=== PATIENT | male | born 1945 | race Caucasian/White ===

== ENCOUNTER 2021-12-31 09:51 | Observation (INO) | payer OTHER ==
[~2021-12-31] VITALS: Ht 163.8 cm; Wt 95.3 kg
[2021-12-31 09:53] VITALS: BP 146/107
--- NOTE | 2021-12-31 12:10 | NUR ---
MD LIANG AT BEDSIDE FOR EVALUATION
--- NOTE | 2021-12-31 12:22 | NUR ---
LAB AT BEDSIDE
[2021-12-31 12:37] LABS: BASOPHILS % (AUTO) 0.2 % (0.0-2.0); EOSINOPHILS % (AUTO) 0.4 % (0.0-4.0); HEMATOCRIT 44.1 % (36-52); LYMPHOCYTES # (AUTO) 0.8 K/uL (2.0-11.5); LYMPHOCYTES % (AUTO) 8.5 % (20.5-51.1); MEAN CORPUSCULAR HEMOGLOBIN 31 pg (27-31); MEAN CORPUSCULAR HGB CONC 34 g/dL (33-37); MEAN CORPUSCULAR VOLUME 91.8 fL (80-94); MONOCYTES # (AUTO) 0.7 K/uL (0.8-1.0); MONOCYTES % (AUTO) 7.3 % (1.7-9.3); NEUTROPHILS # (AUTO) 7.7 K/uL (1.8-7.7); NEUTROPHILS % (AUTO) 83.6 % (42.2-75.2); PLATELET COUNT (AUTO) 184 K/uL (140-450); RED CELL DISTRIBUTION WIDTH 15.6 % (11.6-13.7); WHITE BLOOD COUNT (AUTO) 9.3 K/uL (4.8-10.8)
--- NOTE | 2021-12-31 12:38 | NUR ---
pt encouraged to give urine sample and provided w/ urinal
--- NOTE | 2021-12-31 13:00 | NUR ---
76YO MALE PT C/O BURNING DYSURIA , DENIES BLOOD. UNABLE TO RECALL xDAYS FOR SYMPTOMS. NOTES INCREASE IN URINE FREQ. DENIES N/V/D, FEVER , CHILLS, ABDOMINAL OR CHEST PAIN. PT AAOX2 TO NAME AND PLACE W/ EPISODES OF CONFUSION. PER FAMILY, PT AAOX4 AT BASELINE. NO VISIBLE DISTRESS, RESPIRATIONS EVEN AND UNLABORED. HOB POSITIONED PER COMFORT, BED AT LOWEST POSITION, BED RAILS UP X2. HX: HTN, HLD, THYROID DISEASE NKA SURGERIES : Appendectomy, Cholecystectomy
[2021-12-31 13:01] LABS: ALBUMIN 3.6 g/dL (3.4-5.0); ANION GAP 12.2 (8-16); ASPARTATE AMINOTRANSFERASE 18 U/L (15-37); CARBON DIOXIDE 29.1 mmol/L (21-32); CHLORIDE 102 mmol/L (98-107); CREATININE 1.4 mg/dL (0.6-1.3); GLUCOSE 93 mg/dL (74-106); POTASSIUM 4.3 mmol/L (3.5-5.1); SODIUM SERUM 139 mmol/L (136-145); TOTAL BILIRUBIN 0.9 mg/dL (0.0-1.0); UREA NITROGEN, BLOOD 20 mg/dL (7-18)
[2021-12-31 13:26] LABS: APPEARANCE,URINE CLEAR (CLEAR); BILIRUBIN,URINE NEGATIVE (NEGATIVE); BLOOD, URINE 3+ (NEGATIVE); COLOR,URINE YELLOW (YELLOW); LEUKOCYTE ESTERASE ,URINE TRACE (NEGATIVE); NITRITE, URINE NEGATIVE (NEGATIVE); UGLUCOSE NEGATIVE (NEGATIVE)
[2021-12-31] MEDS ORDERED: NACL 0.9% 1,000 ML IV ONE (14:00)
[2021-12-31] MEDS ORDERED: cefTRIAXone 1,000 MG VIAL ONE (14:22)
--- NOTE | 2021-12-31 14:42 | NUR ---
pt swabbed for covid(stefany). handed to label coder
--- NOTE | 2021-12-31 16:45 | NUR ---
DAUGHTER TO CALL BACK W/ MED RECON
--- NOTE | 2021-12-31 16:45 | NUR ---
pt daughter TANNER called , notified of pt status and pending admit
[2021-12-31] MEDS ORDERED: MAG SULF 2000 MG/WATER PREMIX 50 ML IV PRN (17:25)
[2021-12-31] MEDS ORDERED: KCL 20 MEQ/WATER INJ PREMIX 200 ML IV PRN (17:25)
[2021-12-31] MEDS ORDERED: MORPHINE SULFATE 4 MG/ML SYR IVP PRN (17:25)
[2021-12-31] MEDS ORDERED: MAGNESIUM OXIDE 400 MG TAB PO PRN (17:25)
[2021-12-31] MEDS ORDERED: POTASSIUM CHLORIDE 10 MEQ TABER PO PRN (17:25)
[2021-12-31] MEDS ORDERED: HYDROcodone/APAP 5/325 MG 1 TAB TAB PO PRN (17:25)
[2021-12-31] MEDS: NACL 0.9% 1,000 ML IV SCH (17:25)
[2021-12-31] MEDS ORDERED: ONDANSETRON 4 MG/2 ML VIAL IVP PRN (17:25)
--- NOTE | 2021-12-31 18:31 | NUR ---
pt provided w/ dinner tray. pt awake and eating in bed
--- NOTE | 2021-12-31 18:42 | NUR ---
pt reports new onset of headache and nausea.
--- NOTE | 2021-12-31 18:44 | NUR ---
MOVED TO ER BED 11
[2021-12-31] MEDS: ACETAMINOPHEN 325 MG TAB PO PRN (18:52)
--- NOTE | 2021-12-31 19:59 | NUR ---
Patient will be admitted to care of Arben VASQUEZ. Admited to Tele, 123B. Will go to room 123b. Belongings list completed. Bedside report to Arben RN, Arben VASQUEZ verbalized understanding of report, no further questions.
[2021-12-31 20:30] VITALS: BP 138/69
--- NOTE | 2021-12-31 20:45 | NUR ---
RECEIVED PATIENT FROM ER NURSE ANTOINE, PT ARRIVED VIA GURNEY ACCOMPANIED BY DAUGHTER. PATIENT ALERT AND ORIENTED X 4, TURKS AND [place] SPEAKING. ON ROOM AIR, BREATHING EQUAL AND UNLABORED, NO DISTRESS NOTED. SKIN IS WARM, DRY AND INTACT. PT HAS IV ON L HAND G 20 AND REMOVED IV ON R WRIST G 22 PT REPORTS PAIN ON IV SITE.PT REPORTS PAINFUL URINATION. VITAL SIGNS STABLE. MRSA SWAB DONE. ORIENTED TO ROOM AND CALL LIGHT. ALL PRECAUTIONS IN PLACE. CALL LIGHT WITHIN REACH. WILL CONTINUE TO MONITOR.
--- NOTE | 2022-01-01 01:30 | NUR ---
PT ASLEEP, VISIBLE CHEST RISE AND FALL NOTED. NO DISTRESS NOTED. PATIENTS URINAL EMPTIED. CLEAR YELLOW URINE NOTED WITH 600ML OUTPUT. WILL CONTINUE TO MONITOR.
[2022-01-01] MEDS ORDERED: SYN.05 PO (03:24)
[2022-01-01] MEDS ORDERED: LOSA100T1 PO (03:24)
[2022-01-01] MEDS ORDERED: WARF3TAB18 PO (03:24)
[2022-01-01] MEDS ORDERED: CARV3.12 PO (03:24)
[2022-01-01] MEDS ORDERED: ATOR40TA PO (03:24)
[2022-01-01 08:00] VITALS: BP 141/79
[2022-01-01] MEDS: ACETAMINOPHEN 325 MG TAB PO PRN (08:18)
[2022-01-01] MEDS ORDERED: DOCUSATE SODIUM 100 MG GELCAP PO SCH (09:00)
[2022-01-01 09:10] LABS: BASOPHILS % (AUTO) 0.2 % (0.0-2.0); EOSINOPHILS % (AUTO) 0.1 % (0.0-4.0); HEMATOCRIT 42.7 % (36-52); HEMOGLOBIN 14.2 g/dL (12.0-18.0); LYMPHOCYTES # (AUTO) 1.1 K/uL (2.0-11.5); LYMPHOCYTES % (AUTO) 10.6 % (20.5-51.1); MEAN CORPUSCULAR HEMOGLOBIN 31 pg (27-31); MEAN CORPUSCULAR HGB CONC 33 g/dL (33-37); MEAN CORPUSCULAR VOLUME 92.9 fL (80-94); MONOCYTES # (AUTO) 0.7 K/uL (0.8-1.0); MONOCYTES % (AUTO) 7.4 % (1.7-9.3); NEUTROPHILS # (AUTO) 8.2 K/uL (1.8-7.7); NEUTROPHILS % (AUTO) 81.7 % (42.2-75.2); PLATELET COUNT (AUTO) 174 K/uL (140-450); RED CELL DISTRIBUTION WIDTH 15.9 % (11.6-13.7)
--- NOTE | 2022-01-01 09:10 | NUR ---
PATIENT HAS BEEN SCREENED AND CATEGORIZED LOW NUTRITION RISK. PATIENT WILL BE SEEN WITHIN 7 DAYS OF ADMISSION. 01/07/22 REVIEWED BY SHIRLEY CARRASCO RD
[2022-01-01] MEDS: NACL 0.9% 1,000 ML IV SCH (09:50)
[2022-01-01 10:07] LABS: ALBUMIN 2.7 g/dL (3.4-5.0); ANION GAP 12.1 (8-16); ASPARTATE AMINOTRANSFERASE 15 U/L (15-37); CARBON DIOXIDE 25.9 mmol/L (21-32); CHLORIDE 105 mmol/L (98-107); CREATININE 1.3 mg/dL (0.6-1.3); GLUCOSE 103 mg/dL (74-106); MAGNESIUM 1.7 mg/dL (1.8-2.4); SODIUM SERUM 139 mmol/L (136-145); TOTAL BILIRUBIN 0.8 mg/dL (0.0-1.0); UREA NITROGEN, BLOOD 18 mg/dL (7-18)
[2022-01-01] MEDS ORDERED: NITR100C7 PO (15:39)
[2022-01-01] MEDS ORDERED: FINA5TAB1 PO (15:39)
[2022-01-01] MEDS ORDERED: TAMS0.4C96 PO (15:39)
[2022-01-01 16:00] VITALS: BP 141/73
[2022-01-01 16:14] VITALS: BP 141/73
--- NOTE | 2022-01-01 16:48 | NUR ---
REVIEWED AND DISCUSSED DISCHARGE INSTRUCTIONS WITH PT. PT WAS ABLE TO VERBALIZE UNDERSTANDING AND SIGN ALL PAPERWORK. PT IN STABLE CONDITION.
--- NOTE | 2022-01-01 17:44 | NUR ---
P.T. NOTES P.T. EVAL COMPLETED; REFER TO EVAL FOR DETAILS.
--- NOTE | 2022-01-11 14:11 | NUR ---
LATE ENTRY- IV NS DISCOTNINED AT 1954.
== END 2022-01-01 17:10 | disposition home or self-care (01) ==
LOC: MED 09:51 → MMU 17:26 → MTU 19:04
PROVIDERS: ADMIT Hospitalist; ATTEND Hospitalist
DX: N39.0 Urinary tract infection, site not specified (principal); Z20.822 Contact with and (suspected) exposure to COVID-19; N40.1 Benign prostatic hyperplasia with lower urinary tract symptoms; R33.9 Retention of urine, unspecified; E03.9 Hypothyroidism, unspecified; I10 Essential (primary) hypertension; I87.8 Other specified disorders of veins; Z79.899 Other long term (current) drug therapy
CPT/HCPCS: 36415; 80053; 81001; 83605; 83735; 85025; 87040; 87081; 87086; 87426; 96361; 96365; 96375; 97163; 99284; G0378; J0696; J2405; J7060